=== PATIENT | female | born 1955 | race Two or more races ===

== ENCOUNTER 2019-10-27 07:50 | Inpatient (IN) | payer MEDICARE, MEDICAID ==
[~2019-10-27] VITALS: Ht 121.9 cm; Wt 47.0 kg
[2019-10-27 09:28] LABS: Basophils # (auto) 0.1 uL; Eosinophils # (auto) 0.1 uL; Lymphocytes # (auto) 0.6 uL; Lymphocytes % (auto) 11.4 % (10.0-50.0); Monocytes # (auto) 0.2 uL; White Blood Cell 5.4 10^3/uL (4.4-10.8)
[2019-10-27 09:30] LABS: Eosinophils % (auto) 1.1 % (0.0-7.0); Hematocrit 32.5 % (36.0-46.0); Hemoglobin 10.7 g/dL (12.2-16.2); Mean Corpuscular Hgb Conc. 32.8 g/dL (32.0-36.0); Mean Corpuscular Volume 103.4 fL (80.0-100.0); Monocytes % (auto) 4.5 % (0.0-12.0); Neutrophils # (auto) 4.4 uL; Platelet Count (auto) 336 10^3/uL (140-450); Red Blood Cells 3.14 10^6/uL (4.0-5.20); Red Cell Distribution Width 15.9 % (11.8-14.3)
[2019-10-27 09:43] LABS: Albumin 3.3 g/dL (3.4-5.0); Calcium 8.5 mg/dL (8.5-10.1)
[2019-10-27 09:47] LABS: Potassium 7.3 mmol/L (3.5-5.1)
[2019-10-27 09:58] LABS: Bilirubin, Total 0.3 mg/dL (0.2-1.0); Total Protein 6.8 g/dL (6.4-8.2)
[2019-10-27] MEDS ORDERED: SODIUM CHLORIDE 0.9% 1,000 ML IV ONE (11:05)
[2019-10-27] MEDS ORDERED: CALCIUM CHL 100MG/ML 1,000 MG in D5W 5% 100 ML IV ONE (11:15)
[2019-10-27] MEDS ORDERED: ALBUTEROL SULF 2.5 MG/0.5ML(0.5%) NEB SOLN NEB ONE ×2 (11:15→11:45)
[2019-10-27] MEDS ORDERED: SODIUM BICARBONATE 8.4 % INJ 50ML VIAL IV ONE (11:15)
[2019-10-27] MEDS ORDERED: InsuLIN REG 1unit/0.01ml Soln (100units/ml) IV ONE (11:45)
[2019-10-27] MEDS ORDERED: DEXTROSE (50%) 50ML SYRG IV ONE (11:45)
[2019-10-27] MEDS ORDERED: SODIUM ZIRCONIUM CYCL 10 GM PAK PO ONE (11:45)
[2019-10-27] MEDS ORDERED: CALCIUM GLUC 4.65meq/50ml D5AE 0 ML IV ONE (12:15)
[2019-10-27] MEDS ORDERED: ONDANSETRON HCL 4 MG/2 ML VIAL IV PRN (13:15)
[2019-10-27] MEDS ORDERED: LABETALOL HCL 5 MG/ML 4ML SYRINGE IV PRN (13:15)
[2019-10-27] MEDS ORDERED: ALBUTEROL SULF 2.5 MG/0.5ML(0.5%) NEB SOLN NEB PRN (13:15)
[2019-10-27] MEDS ORDERED: NITROGLYCERIN 0.4 MG SL TAB SL PRN (13:15)
[2019-10-27] MEDS ORDERED: HYDROcodone-ACET 5/325MG TAB PO PRN (13:15)
[2019-10-27] MEDS ORDERED: MORPHINE SULF INJ 2 MG/ML SYRINGE 1ML IV PRN ×2 (13:15)
[2019-10-27] MEDS ORDERED: IPRATROPIUM BROM 0.5 MG/2.5ML INH SOL NEB PRN (13:15)
[2019-10-27] MEDS ORDERED: BUMETANIDE 2.5mg/10ml (0.25 mg/ml) INJ IV ONE (13:15)
[2019-10-27] MEDS ORDERED: ACETAMINOPHEN 500 MG TAB PO PRN (13:15)
[2019-10-27 13:29] VITALS: BP 174/74
[2019-10-27] MEDS ORDERED: SODIUM CHL 0.9% 1000 ML BAG XX ONE (13:45)
[2019-10-27 13:58] LABS: % Iron Saturation 77.6 % (15-50)
[2019-10-27 19:03] LABS: Calcium 8.5 mg/dL (8.5-10.1); Potassium 3.6 mmol/L (3.5-5.1)
[2019-10-27 19:05] LABS: BUN/Creatinine Ratio 12.9
--- NOTE | 2019-10-27 21:11 | NUR ---
Respiratory note: ASSESSMENT FOR PRN MED NEB TX. PT SLEEPING COMFORTABLY AT THIS TIME. NO RESPIRATORY DISTRESS NOTED. HR 88, SPO2 99% ON 1L NC, RR 16, BS DIMINISHED. MED NEB TX NOT INDICATED AT THIS TIME. WILL CONTINUE TO MONITOR.
--- NOTE | 2019-10-27 22:00 | NUR ---
Telemetry admit from [facility] admitted to Telemetry unit after SBAR received. Patient speaks greek only. Another RN at bedside for translation. Patient oriented to MARK SALEEM RN primary RN, unit, room, bed, and unit policies regarding patient care and visiting hours. Patient now on continuous telemetry monitoring, tele box #50 and telemetry reading on arrival to unit is Sinus Rhythm at 77bpm. Patient placed on bedside oxygen, weighed by bedscale and encouraged to call if they need something. All questions and concerns addressed, patient verbalized understanding.
[2019-10-27] MEDS: CARVEDILOL 3.125 MG TAB PO SCH (23:40)
[2019-10-28 05:00] VITALS: BP 122/62
[2019-10-28 06:32] LABS: Basophils # (auto) 0 uL; Basophils % (auto) 0.8 % (0.0-2.0); Eosinophils # (auto) 0 uL; Eosinophils % (auto) 0.6 % (0.0-7.0); Hemoglobin 9.2 g/dL (12.2-16.2); Lymphocytes # (auto) 0.5 uL; Lymphocytes % (auto) 10.8 % (10.0-50.0); Mean Corpuscular Hemoglobin 34.9 pg (28.0-32.0); Mean Corpuscular Hgb Conc. 34.2 g/dL (32.0-36.0); Mean Corpuscular Volume 102.1 fL (80.0-100.0); Monocytes # (auto) 0.3 uL; Monocytes % (auto) 6.2 % (0.0-12.0); Neutrophils # (auto) 3.6 uL; Neutrophils % (auto) 81.6 % (37.0-80.0); Platelet Count (auto) 240 10^3/uL (140-450); Red Blood Cells 2.65 10^6/uL (4.0-5.20); Red Cell Distribution Width 16.1 % (11.8-14.3); White Blood Cell 4.4 10^3/uL (4.4-10.8)
[2019-10-28 06:40] LABS: Calcium 8.1 mg/dL (8.5-10.1); Potassium 4.4 mmol/L (3.5-5.1)
--- NOTE | 2019-10-28 08:10 | NUR ---
Patient in bed, awake, oriented x4, no acute distress noted.
[2019-10-28 09:25] VITALS: BP 111/62
[2019-10-28 10:00] LABS: Hepatitis A Ab IgM Negative; Hepatitis B Core IgM Negative; Hepatitis B Surface Antigen Negative (Negative); Hepatitis C Antibody Negative (Negative)
[2019-10-28] MEDS ORDERED: FAMOTIDINE 20 MG TAB PO SCH (10:00)
--- NOTE | 2019-10-28 10:36 | NUR ---
Pepcid not available. Pharmacy made aware.
[2019-10-28] MEDS: CARVEDILOL 3.125 MG TAB PO SCH (10:38)
[2019-10-28] MEDS ORDERED: amLODIPine BESYLATE 5 MG TAB PO SCH (11:30)
--- NOTE | 2019-10-28 12:28 | NUR ---
Sal Layne ordered to discharge the patient today.
--- NOTE | 2019-10-28 13:12 | NUR ---
Called son Cliff Erazo ([phone]). Phone on [place]. Left a message to call back.
[2019-10-28 14:14] VITALS: BP 114/59
--- NOTE | 2019-10-28 14:20 | NUR ---
at bedside, stated he will be the one to picker / packer the patient for discharge.
--- NOTE | 2019-10-28 15:10 | NUR ---
Nurse Christine Byrne translated for the patient in French.
--- NOTE | 2019-10-28 15:15 | NUR ---
Discharge instructions given as ordered. Encourage to follow up with PMD as instructed. All questions and concerns addressed. Patient verbalized understanding. Medication reconciliation form completed and copy given to patient. IV removed with catheter intact, pressure dressing applied. Telemetry unit returned to ICU. brought patient's own wheelchair from home. Patient taken to vehicle via wheelchair with all personal belongings, accompanied by /family member. No distress noted at time of departure.
== END 2019-10-28 15:15 | disposition home or self-care (01) | DRG 640 ==
LOC: ER 07:50 → TELE 07:51 → TELE-WESTW 21:54
PROVIDERS: ADMIT Nurse Practitioner Acute Care; ATTEND Internal Medicine Nephrology
PROC: 5A1D70Z Performance of Urinary Filtration, Intermittent, Less than 6 Hours Per Day (ICD-10-PCS; principal; 2019-10-27)
DX: E87.5 Hyperkalemia (principal); N18.6 End stage renal disease; I13.11 Hypertensive heart and chronic kidney disease without heart failure, with stage 5 chronic kidney disease, or end stage renal disease; N17.9 Acute kidney failure, unspecified; E44.1 Mild protein-calorie malnutrition; I16.1 Hypertensive emergency; E87.6 Hypokalemia; D63.1 Anemia in chronic kidney disease; Z68.31 Body mass index [BMI] 31.0-31.9, adult; Z99.2 Dependence on renal dialysis; Z91.19 Patient's noncompliance with other medical treatment and regimen; Z90.710 Acquired absence of both cervix and uterus
CPT/HCPCS: 36415; 71045; 80048; 80053; 80074; 82728; 82962; 83540; 83550; 83735; 85025; 87081; 93005; 94640; 96365; 96375; G0378; J0610; J1642; J1815; J2405; J3490; J7060

== ENCOUNTER 2020-10-27 16:39 | Inpatient (IN) | payer MEDICARE, MEDICAID ==
[~2020-10-27] VITALS: Ht 160 cm; Wt 45.3 kg
[2020-10-27] MEDS ORDERED: NOREPINEPHRINE 8 MG/250ML KIT 250 ML IV ONE (18:20)
[2020-10-27 18:40] LABS: Basophils # (auto) 0 10 ^3/uL (0-0.2); Eosinophils # (auto) 0 10 ^3/uL (0-0.8); Lymphocytes # (auto) 0.9 10 ^3/uL (0.4-5.4); Mean Corpuscular Hgb Conc. 30.8 g/dL (32.0-36.0)
[2020-10-27 18:42] LABS: Basophils % (auto) 0.1 % (0.0-2.0); Hematocrit 13.5 % (36.0-46.0); Lymphocytes % (auto) 6.4 % (10.0-50.0); Mean Corpuscular Hemoglobin 31.6 pg (28.0-32.0); Mean Corpuscular Volume 102.6 fL (80.0-100.0); Monocytes # (auto) 0.3 10 ^3/uL (0-1.3); Monocytes % (auto) 2.6 % (0.0-12.0); Neutrophils # (auto) 12.1 10 ^3/uL (1.6-8.6); Neutrophils % (auto) 90.9 % (37.0-80.0); Nucleated Red Blood Cells % 0.1 %; Red Blood Cells 1.31 10^6/uL (4.0-5.20); Red Cell Distribution Width 19.8 % (11.8-14.3); White Blood Cell 13.3 10^3/uL (4.4-10.8)
[2020-10-27 18:50] LABS: Hemoglobin 4.2 g/dL (12.2-16.2)
[2020-10-27 18:59] LABS: Alanine Aminotransferase 19 U/L (13-56); Albumin 2.8 g/dL (3.4-5.0); Anion Gap 25 (5-15); Aspartate Aminotransferase 14 U/L (15-37); BUN/Creatinine Ratio 26.8; Calcium 8.7 mg/dL (8.5-10.1); Carbon Dioxide 10 mmol/L (21-32); Chloride 102 mmol/L (98-107); GFR African American 15 mL/min; GFR Non-African American 12 mL/min; Glucose 304 mg/dL (74-106); Potassium 5.1 mmol/L (3.5-5.1); Sodium 137 mmol/L (136-145)
[2020-10-27 19:00] LABS: Alkaline Phosphatase 938 U/L (45-117); Bilirubin, Total 0.2 mg/dL (0.2-1.0); Lactic Acid w/Reflex 11.5 mmol/L (0.4-2.0); Total Protein 5.3 g/dL (6.4-8.2)
[2020-10-27 19:10] LABS: Blood Urea Nitrogen 105 mg/dL (7-18)
[2020-10-27] MEDS ORDERED: ALUM & MAG HYDROX-SIMETH LIQ(MAALOX) 30 ML PO PRN (19:15)
[2020-10-27] MEDS ORDERED: DOCUSATE SOD 100 MG CAP PO PRN (19:15)
[2020-10-27] MEDS ORDERED: MORPHINE SULFATE INJECTION 2 MG/ML SYRG IV PRN ×2 (19:15)
[2020-10-27] MEDS ORDERED: DEXTROSE (50%) 50ML SYRG IV PRN (19:15)
[2020-10-27] MEDS ORDERED: LORazepam 0.5 MG TAB PO PRN (19:15)
[2020-10-27] MEDS ORDERED: ONDANSETRON HCL 4 MG/2 ML VIAL IV PRN (19:15)
[2020-10-27] MEDS ORDERED: ACETAMINOPHEN 325 MG TAB PO PRN (19:15)
[2020-10-27] MEDS ORDERED: ALBUMIN 25% 100 ML IV ONE (19:15)
[2020-10-27] MEDS ORDERED: HYDROcodone-ACET 5/325MG TAB PO PRN (19:15)
[2020-10-27] MEDS ORDERED: NITROGLYCERIN 0.4 MG SL TAB SL PRN (19:15)
[2020-10-27] MEDS ORDERED: diphenhdrAMINE HCL 25 MG CAP PO ONE (19:15)
[2020-10-27] MEDS: CEFEPIME 1 GM in SODIUM CHL 0.9% 50 ML IV ONE ×2 (19:30→22:32)
[2020-10-27] MEDS ORDERED: hydrALAZINE HCL 20 MG/ML VL IV PRN (19:45)
[2020-10-27] MEDS ORDERED: SEVELAMER 800 MG TAB PO ONE (19:45)
[2020-10-27 19:58] LABS: INR 1.09 (0.9-1.15)
[2020-10-27 20:14] LABS: Partial Thromboplastin Time < 20.0 sec (23.0-31.2)
[2020-10-27 20:42] LABS: Cholesterol 112 mg/dL (< 200); HDL Cholesterol 42 mg/dL (40-59); LDL Cholesterol 48 mg/dL (< 100); Triglycerides 132 mg/dL (< 150)
[2020-10-27] MEDS ORDERED: CLINDAMYCIN 300MG IV 50 ML IV ONE (20:45)
[2020-10-27 21:15] VITALS: BP 112/48
[2020-10-27 21:30] VITALS: BP 118/49
[2020-10-27] MEDS: NOREPINEPHRINE 8 MG/250ML KIT 250 ML IV SCH (21:48)
[2020-10-27] MEDS: ATORVASTATIN 20 MG TAB PO SCH (22:00)
[2020-10-27] MEDS: CARVEDILOL 3.125 MG TAB PO SCH (22:00)
[2020-10-27] MEDS ORDERED: ALBUTEROL SULF HFA 90MCG INH 200DOSE IN SCH (22:00)
[2020-10-27 22:10] LABS: INR 1.15 (0.9-1.15)
[2020-10-27] MEDS: CEFEPIME 0.5 GM in SODIUM CHL 0.9% 50 ML IV SCH (22:28)
[2020-10-27] MEDS: InsuLIN REG 1unit/0.01ml Soln (100units/ml) SC SCH (22:35)
[2020-10-27] MEDS: ACCU-CHEK COMFORT CURVE STRIP VI SCH (22:36)
[2020-10-28 00:30] VITALS: BP 133/62
[2020-10-28 00:50] VITALS: BP 138/60
[2020-10-28 01:20] VITALS: BP 141/57
[2020-10-28 04:34] VITALS: BP 140/60
[2020-10-28] MEDS: ALBUMIN 25% 100 ML IV SCH ×3 (04:46→21:48)
[2020-10-28] MEDS: CLINDAMYCIN 300MG IV 50 ML IV SCH ×3 (05:39→21:50)
[2020-10-28] MEDS: FUROSEMIDE 20 MG/2 ML VIAL IV SCH ×2 (06:00→18:00)
[2020-10-28 06:57] LABS: Eosinophils # (auto) 0 10 ^3/uL (0-0.8); Hemoglobin 8.4 g/dL (12.2-16.2); White Blood Cell 11.9 10^3/uL (4.4-10.8)
[2020-10-28 06:59] LABS: Basophils # (auto) 0 10 ^3/uL (0-0.2); Basophils % (auto) 0.2 % (0.0-2.0); Hematocrit 24.1 % (36.0-46.0); Lymphocytes # (auto) 0.2 10 ^3/uL (0.4-5.4); Mean Corpuscular Hemoglobin 31.1 pg (28.0-32.0); Mean Corpuscular Volume 88.9 fL (80.0-100.0); Monocytes # (auto) 0.5 10 ^3/uL (0-1.3); Monocytes % (auto) 3.8 % (0.0-12.0); Neutrophils # (auto) 11.2 10 ^3/uL (1.6-8.6); Nucleated Red Blood Cells % 0.1 %; Red Blood Cells 2.71 10^6/uL (4.0-5.20); Red Cell Distribution Width 15.9 % (11.8-14.3)
[2020-10-28] MEDS: InsuLIN REG 1unit/0.01ml Soln (100units/ml) SC SCH ×4 (07:00→20:29)
[2020-10-28 07:09] LABS: Albumin 3.6 g/dL (3.4-5.0); Calcium 7.8 mg/dL (8.5-10.1); Magnesium 2.5 mg/dL (1.6-2.6); Potassium 4.5 mmol/L (3.5-5.1)
[2020-10-28 07:13] LABS: BUN/Creatinine Ratio 30.5; Bilirubin, Total 0.5 mg/dL (0.2-1.0); Phosphorus 6.1 mg/dL (2.5-4.90); Total Protein 5.8 g/dL (6.4-8.2)
[2020-10-28 07:18] LABS: INR 1.06 (0.9-1.15); Partial Thromboplastin Time 27.9 sec (23.0-31.2)
[2020-10-28] MEDS: ACCU-CHEK COMFORT CURVE STRIP VI SCH ×4 (07:48→20:28)
[2020-10-28] MEDS: SEVELAMER 800 MG TAB PO SCH ×3 (08:00→18:00)
[2020-10-28] MEDS: CHOLECALCIFEROL (VITD3) 2,000 UNIT CAP/TAB PO SCH (10:00)
[2020-10-28] MEDS: FAMOTIDINE (10MG/ML) 2ML VL IV SCH ×2 (10:00→21:27)
[2020-10-28] MEDS: CARVEDILOL 3.125 MG TAB PO SCH ×2 (10:00→20:29)
[2020-10-28] MEDS: B-COMPLEX W/ C & FOLIC ACID(NEPHROVITE TAB) PO SCH (10:00)
[2020-10-28] MEDS ORDERED: ALBUMIN 5% 0 ML IV ONE (12:54)
[2020-10-28] MEDS ORDERED: ALBUMIN 25% 100 ML IV ONE ×2 (12:55→21:28)
[2020-10-28] MEDS: CEFEPIME 0.5 GM in SODIUM CHL 0.9% 50 ML IV SCH (20:00)
[2020-10-28] MEDS: ATORVASTATIN 20 MG TAB PO SCH (21:27)
[2020-10-28] MEDS: NOREPINEPHRINE 8 MG/250ML KIT 250 ML IV SCH (21:45)
[2020-10-29] MEDS: ACCU-CHEK COMFORT CURVE STRIP VI SCH ×4 (05:47→21:37)
[2020-10-29] MEDS: InsuLIN REG 1unit/0.01ml Soln (100units/ml) SC SCH ×4 (05:47→21:37)
[2020-10-29 06:09] LABS: Basophils # (auto) 0 10 ^3/uL (0-0.2); Basophils % (auto) 0.1 % (0.0-2.0); Eosinophils # (auto) 0 10 ^3/uL (0-0.8); Eosinophils % (auto) 0.1 % (0.0-7.0); Hematocrit 20.2 % (36.0-46.0); Hemoglobin 7.5 g/dL (12.2-16.2); Lymphocytes # (auto) 0.3 10 ^3/uL (0.4-5.4); Lymphocytes % (auto) 4.6 % (10.0-50.0); Mean Corpuscular Hemoglobin 32.8 pg (28.0-32.0); Mean Corpuscular Hgb Conc. 37.1 g/dL (32.0-36.0); Mean Corpuscular Volume 88.3 fL (80.0-100.0); Monocytes # (auto) 0.6 10 ^3/uL (0-1.3); Monocytes % (auto) 7.5 % (0.0-12.0); Neutrophils # (auto) 6.5 10 ^3/uL (1.6-8.6); Neutrophils % (auto) 87.7 % (37.0-80.0); Nucleated Red Blood Cells % 0.4 %; Red Blood Cells 2.29 10^6/uL (4.0-5.20); Red Cell Distribution Width 16.3 % (11.8-14.3); White Blood Cell 7.4 10^3/uL (4.4-10.8)
[2020-10-29] MEDS: CLINDAMYCIN 300MG IV 50 ML IV SCH ×3 (06:16→21:07)
[2020-10-29] MEDS: FUROSEMIDE 20 MG/2 ML VIAL IV SCH ×2 (06:16→17:28)
[2020-10-29 06:24] LABS: Potassium 4.1 mmol/L (3.5-5.1)
[2020-10-29 06:28] LABS: Albumin 3.4 g/dL (3.4-5.0); BUN/Creatinine Ratio 20.5; Calcium 8.5 mg/dL (8.5-10.1); Magnesium 2.3 mg/dL (1.6-2.6)
[2020-10-29 06:30] LABS: Bilirubin, Total 0.5 mg/dL (0.2-1.0); Phosphorus 6.1 mg/dL (2.5-4.90); Total Protein 5.6 g/dL (6.4-8.2)
[2020-10-29 06:31] LABS: INR 1.18 (0.9-1.15); Partial Thromboplastin Time 34.1 sec (23.0-31.2)
[2020-10-29] MEDS: SEVELAMER 800 MG TAB PO SCH ×3 (07:41→17:29)
[2020-10-29] MEDS: B-COMPLEX W/ C & FOLIC ACID(NEPHROVITE TAB) PO SCH (09:29)
[2020-10-29] MEDS: FAMOTIDINE (10MG/ML) 2ML VL IV SCH ×2 (09:29→21:08)
[2020-10-29] MEDS: CHOLECALCIFEROL (VITD3) 2,000 UNIT CAP/TAB PO SCH (09:29)
[2020-10-29] MEDS: CARVEDILOL 3.125 MG TAB PO SCH ×2 (09:29→21:37)
[2020-10-29] MEDS: CEFEPIME 0.5 GM in SODIUM CHL 0.9% 50 ML IV SCH (17:28)
[2020-10-29 21:00] VITALS: BP 119/55
[2020-10-29] MEDS: ATORVASTATIN 20 MG TAB PO SCH (21:08)
[2020-10-29] MEDS: NOREPINEPHRINE 8 MG/250ML KIT 250 ML IV SCH (21:45)
[2020-10-29 22:00] VITALS: BP 119/55
[2020-10-30 05:00] VITALS: BP 96/47
[2020-10-30] MEDS: CLINDAMYCIN 300MG IV 50 ML IV SCH ×2 (05:42→14:27)
[2020-10-30] MEDS: ACCU-CHEK COMFORT CURVE STRIP VI SCH ×4 (05:43→22:00)
[2020-10-30] MEDS: InsuLIN REG 1unit/0.01ml Soln (100units/ml) SC SCH ×4 (05:43→22:00)
[2020-10-30] MEDS: FUROSEMIDE 20 MG/2 ML VIAL IV SCH ×2 (05:43→18:00)
[2020-10-30] MEDS: SEVELAMER 800 MG TAB PO SCH ×3 (09:24→18:00)
[2020-10-30] MEDS: FAMOTIDINE (10MG/ML) 2ML VL IV SCH (09:25)
[2020-10-30] MEDS: B-COMPLEX W/ C & FOLIC ACID(NEPHROVITE TAB) PO SCH (09:25)
[2020-10-30] MEDS: CARVEDILOL 3.125 MG TAB PO SCH ×2 (09:25→23:03)
[2020-10-30] MEDS: CHOLECALCIFEROL (VITD3) 2,000 UNIT CAP/TAB PO SCH (09:25)
[2020-10-30 10:13] VITALS: BP 110/55
[2020-10-30] MEDS ORDERED: LOPERAMIDE HCL 2 MG CAP PO PRN (12:00)
[2020-10-30 12:27] LABS: Albumin 2.9 g/dL (3.4-5.0); Calcium 7.4 mg/dL (8.5-10.1); Potassium 4.6 mmol/L (3.5-5.1)
[2020-10-30] MEDS ORDERED: GOLYTELY 4L KIT PO ONE (12:30)
[2020-10-30 12:41] LABS: BUN/Creatinine Ratio 17.4; Bilirubin, Total 0.4 mg/dL (0.2-1.0); Total Protein 5.4 g/dL (6.4-8.2)
[2020-10-30 17:13] VITALS: BP 136/68
[2020-10-30 22:00] VITALS: BP 130/63
[2020-10-30] MEDS: CEFEPIME 0.5 GM in SODIUM CHL 0.9% 50 ML IV SCH (22:54)
[2020-10-30] MEDS: ATORVASTATIN 20 MG TAB PO SCH (22:54)
[2020-10-31] MEDS: CLINDAMYCIN 300MG IV 50 ML IV SCH ×4 (01:03→22:02)
[2020-10-31 05:00] VITALS: BP 147/70
[2020-10-31] MEDS: FUROSEMIDE 20 MG/2 ML VIAL IV SCH ×2 (05:31→18:22)
[2020-10-31] MEDS ORDERED: GOLYTELY 4L KIT PO ONE (06:00)
[2020-10-31] MEDS: InsuLIN REG 1unit/0.01ml Soln (100units/ml) SC SCH ×4 (06:25→22:00)
[2020-10-31] MEDS: ACCU-CHEK COMFORT CURVE STRIP VI SCH ×4 (06:26→22:02)
[2020-10-31] MEDS ORDERED: SODIUM CHL 0.9% 1000 ML BAG XX ONE (07:00)
[2020-10-31 07:24] LABS: Basophils # (auto) 0 10 ^3/uL (0-0.2); Eosinophils # (auto) 0.1 10 ^3/uL (0-0.8); Eosinophils % (auto) 2.4 % (0.0-7.0); Lymphocytes # (auto) 0.8 10 ^3/uL (0.4-5.4); Neutrophils # (auto) 4.2 10 ^3/uL (1.6-8.6); Nucleated Red Blood Cells % 0.1 %; White Blood Cell 5.5 10^3/uL (4.4-10.8)
[2020-10-31 07:27] LABS: Basophils % (auto) 0.5 % (0.0-2.0); Hematocrit 21.5 % (36.0-46.0); Hemoglobin 7.4 g/dL (12.2-16.2); Lymphocytes % (auto) 15.2 % (10.0-50.0); Mean Corpuscular Hemoglobin 31.8 pg (28.0-32.0); Mean Corpuscular Hgb Conc. 34.5 g/dL (32.0-36.0); Mean Corpuscular Volume 92.2 fL (80.0-100.0); Monocytes # (auto) 0.3 10 ^3/uL (0-1.3); Monocytes % (auto) 6.2 % (0.0-12.0); Neutrophils % (auto) 75.7 % (37.0-80.0); Red Blood Cells 2.33 10^6/uL (4.0-5.20); Red Cell Distribution Width 16.5 % (11.8-14.3)
[2020-10-31 07:42] LABS: Potassium 4.6 mmol/L (3.5-5.1)
[2020-10-31 07:49] LABS: Albumin 2.8 g/dL (3.4-5.0); BUN/Creatinine Ratio 15.5; Bilirubin, Total 0.4 mg/dL (0.2-1.0); Calcium 7.5 mg/dL (8.5-10.1); Total Protein 5.4 g/dL (6.4-8.2)
[2020-10-31 07:51] LABS: % Iron Saturation 25.7 % (15-50)
[2020-10-31 07:55] VITALS: BP 130/62
[2020-10-31] MEDS: SEVELAMER 800 MG TAB PO SCH ×4 (08:00→18:13)
[2020-10-31] MEDS ORDERED: fentaNYL CITRATE 100 MCG/2 ML VL ONE (08:02)
[2020-10-31] MEDS ORDERED: SODIUM CHLORIDE LOCK 10 ML ONE (08:02)
[2020-10-31] MEDS ORDERED: MIDAZOLAM HCL 5 MG/ML-1ML VIAL ONE (08:02)
[2020-10-31] MEDS ORDERED: diphenhdrAMINE HCL 50 MG/1 ML VL ONE (08:02)
[2020-10-31] MEDS: CHOLECALCIFEROL (VITD3) 2,000 UNIT CAP/TAB PO SCH (10:07)
[2020-10-31] MEDS: B-COMPLEX W/ C & FOLIC ACID(NEPHROVITE TAB) PO SCH (10:07)
[2020-10-31] MEDS: CARVEDILOL 3.125 MG TAB PO SCH ×2 (10:08→22:02)
[2020-10-31] MEDS: FAMOTIDINE (10MG/ML) 2ML VL IV SCH (10:08)
[2020-10-31 15:55] VITALS: BP 126/58
[2020-10-31] MEDS: CEFEPIME 0.5 GM in SODIUM CHL 0.9% 50 ML IV SCH (18:14)
[2020-10-31] MEDS ORDERED: EPOETIN ALFA 10,000 UNIT/1 ML VIAL SC ONE (21:00)
[2020-10-31 22:00] VITALS: BP 123/64
[2020-10-31] MEDS: ATORVASTATIN 20 MG TAB PO SCH (22:02)
[2020-11-01] VITALS (10 sets, daily range): BP systolic 123–136; BP diastolic 58–79
[2020-11-01] MEDS: FUROSEMIDE 20 MG/2 ML VIAL IV SCH ×2 (06:33→18:03)
[2020-11-01] MEDS: CLINDAMYCIN 300MG IV 50 ML IV SCH (06:33)
[2020-11-01] MEDS: InsuLIN REG 1unit/0.01ml Soln (100units/ml) SC SCH ×4 (06:36→21:50)
[2020-11-01] MEDS: ACCU-CHEK COMFORT CURVE STRIP VI SCH ×4 (06:36→21:50)
[2020-11-01] MEDS ORDERED: SODIUM CHL 0.9% 1000 ML BAG XX ONE (07:00)
[2020-11-01 07:40] LABS: Potassium 4.6 mmol/L (3.5-5.1)
[2020-11-01] MEDS: SEVELAMER 800 MG TAB PO SCH ×3 (08:00→18:03)
[2020-11-01 08:06] LABS: Albumin 2.8 g/dL (3.4-5.0); Bilirubin, Total 0.7 mg/dL (0.2-1.0); Calcium 7.8 mg/dL (8.5-10.1); Total Protein 5.6 g/dL (6.4-8.2)
[2020-11-01] MEDS ORDERED: SODIUM CHLORIDE LOCK 10 ML ONE (08:08)
[2020-11-01] MEDS ORDERED: diphenhdrAMINE HCL 50 MG/1 ML VL ONE (08:09)
[2020-11-01 08:12] LABS: Basophils # (auto) 0 10 ^3/uL (0-0.2); Basophils % (auto) 0.5 % (0.0-2.0); Eosinophils # (auto) 0.1 10 ^3/uL (0-0.8); Eosinophils % (auto) 2.1 % (0.0-7.0); Hematocrit 31.9 % (36.0-46.0); Hemoglobin 10.9 g/dL (12.2-16.2); Lymphocytes # (auto) 0.4 10 ^3/uL (0.4-5.4); Lymphocytes % (auto) 8.2 % (10.0-50.0); Mean Corpuscular Hemoglobin 31.6 pg (28.0-32.0); Mean Corpuscular Hgb Conc. 34.1 g/dL (32.0-36.0); Mean Corpuscular Volume 92.7 fL (80.0-100.0); Monocytes # (auto) 0.1 10 ^3/uL (0-1.3); Monocytes % (auto) 2.1 % (0.0-12.0); Neutrophils # (auto) 3.8 10 ^3/uL (1.6-8.6); Neutrophils % (auto) 87.1 % (37.0-80.0); Red Blood Cells 3.44 10^6/uL (4.0-5.20); Red Cell Distribution Width 15.6 % (11.8-14.3); White Blood Cell 4.4 10^3/uL (4.4-10.8)
[2020-11-01] MEDS: MIDAZOLAM HCL 5 MG/ML-1ML VIAL ONE ×2 (09:27→09:30)
[2020-11-01] MEDS: fentaNYL CITRATE 100 MCG/2 ML VL ONE ×2 (09:27→09:30)
[2020-11-01] MEDS ORDERED: FLUMAZENIL 0.1 MG/ML INJ 10ML MDV IV ONE (09:42)
[2020-11-01] MEDS ORDERED: NALOXONE HCL 0.4 MG/ML VIAL ONE (09:53)
[2020-11-01] MEDS: CHOLECALCIFEROL (VITD3) 2,000 UNIT CAP/TAB PO SCH (10:00)
[2020-11-01] MEDS: CARVEDILOL 3.125 MG TAB PO SCH ×2 (10:00→21:49)
[2020-11-01] MEDS: B-COMPLEX W/ C & FOLIC ACID(NEPHROVITE TAB) PO SCH (10:00)
[2020-11-01] MEDS ORDERED: AZITHROMYCIN 500MG/ 250ML 250 ML IV ONE (11:00)
[2020-11-01] MEDS ORDERED: cefTRIAXone 1GM/50ML D5W 50 ML IV ONE (11:00)
[2020-11-01] MEDS ORDERED: EPOETIN ALFA 10,000 UNIT/1 ML VIAL SC ONE (21:00)
[2020-11-01] MEDS: ATORVASTATIN 20 MG TAB PO SCH (21:50)
[2020-11-02 02:00] VITALS: BP 136/63
[2020-11-02 05:00] VITALS: BP 129/62
[2020-11-02] MEDS: FUROSEMIDE 20 MG/2 ML VIAL IV SCH ×2 (05:26→18:00)
[2020-11-02] MEDS: InsuLIN REG 1unit/0.01ml Soln (100units/ml) SC SCH ×4 (06:11→21:54)
[2020-11-02] MEDS: ACCU-CHEK COMFORT CURVE STRIP VI SCH ×4 (06:12→21:54)
[2020-11-02 07:32] LABS: Potassium 3.9 mmol/L (3.5-5.1)
[2020-11-02 07:39] LABS: Albumin 2.5 g/dL (3.4-5.0); BUN/Creatinine Ratio 8.9; Bilirubin, Total 0.3 mg/dL (0.2-1.0); Calcium 7.8 mg/dL (8.5-10.1); Total Protein 5.2 g/dL (6.4-8.2)
[2020-11-02 08:00] VITALS: BP 119/64
[2020-11-02 08:10] VITALS: BP 119/64
[2020-11-02] MEDS: CHOLECALCIFEROL (VITD3) 2,000 UNIT CAP/TAB PO SCH (09:26)
[2020-11-02] MEDS: CARVEDILOL 3.125 MG TAB PO SCH ×4 (09:26→22:12)
[2020-11-02] MEDS: SEVELAMER 800 MG TAB PO SCH ×3 (09:26→17:59)
[2020-11-02] MEDS: B-COMPLEX W/ C & FOLIC ACID(NEPHROVITE TAB) PO SCH (09:26)
[2020-11-02] MEDS: AZITHROMYCIN 500MG/ 250ML 250 ML IV SCH (09:27)
[2020-11-02] MEDS: FAMOTIDINE (10MG/ML) 2ML VL IV SCH (09:27)
[2020-11-02] MEDS: cefTRIAXone 1GM/50ML D5W 50 ML IV SCH (09:28)
[2020-11-02 15:51] VITALS: BP 137/65
[2020-11-02] MEDS: ATORVASTATIN 20 MG TAB PO SCH (21:54)
[2020-11-02 22:00] VITALS: BP 149/68
[2020-11-03 05:00] VITALS: BP 145/69
[2020-11-03] MEDS: FUROSEMIDE 20 MG/2 ML VIAL IV SCH ×2 (06:12→18:00)
[2020-11-03] MEDS: ACCU-CHEK COMFORT CURVE STRIP VI SCH ×3 (06:48→17:00)
[2020-11-03] MEDS: InsuLIN REG 1unit/0.01ml Soln (100units/ml) SC SCH ×3 (06:49→17:00)
[2020-11-03] MEDS ORDERED: SODIUM CHL 0.9% 1000 ML BAG XX ONE (07:00)
[2020-11-03 07:58] LABS: Hematocrit 28.8 % (36.0-46.0); Hemoglobin 9.8 g/dL (12.2-16.2)
[2020-11-03 08:00] VITALS: BP 135/69
[2020-11-03] MEDS: SEVELAMER 800 MG TAB PO SCH ×3 (08:12→18:00)
[2020-11-03 08:16] LABS: % Iron Saturation 25.2 % (15-50)
[2020-11-03] MEDS: cefTRIAXone 1GM/50ML D5W 50 ML IV SCH (09:57)
[2020-11-03] MEDS: CARVEDILOL 3.125 MG TAB PO SCH (09:58)
[2020-11-03] MEDS: AZITHROMYCIN 500MG/ 250ML 250 ML IV SCH (09:58)
[2020-11-03] MEDS: CHOLECALCIFEROL (VITD3) 2,000 UNIT CAP/TAB PO SCH (10:02)
[2020-11-03] MEDS: B-COMPLEX W/ C & FOLIC ACID(NEPHROVITE TAB) PO SCH (10:02)
[2020-11-03 15:46] VITALS: BP 147/72
[2020-11-03] MEDS ORDERED: EPOETIN ALFA 10,000 UNIT/1 ML VIAL SC ONE (21:00)
[2020-11-18] MEDS ORDERED: FAMO-12 PO (09:09)
== END 2020-11-03 18:00 | disposition home or self-care (01) | DRG 871 ==
LOC: ER 16:39 → OVERFLOW 19:04 → TELE-EAST 10-29 21:04
PROVIDERS: ADMIT Hospitalist; ATTEND Family Medicine
PROC: 30230N1 Transfusion of Nonautologous Red Blood Cells into Peripheral Vein, Open Approach (ICD-10-PCS; principal; 2020-10-27)
PROC: 02HV33Z Insertion of Infusion Device into Superior Vena Cava, Percutaneous Approach (ICD-10-PCS; 2020-10-27)
PROC: 5A1D70Z Performance of Urinary Filtration, Intermittent, Less than 6 Hours Per Day (ICD-10-PCS; 2020-10-28)
PROC: 5A1D70Z Performance of Urinary Filtration, Intermittent, Less than 6 Hours Per Day (ICD-10-PCS; 2020-11-01)
PROC: 0DJD8ZZ Inspection of Lower Intestinal Tract, Via Natural or Artificial Opening Endoscopic (ICD-10-PCS; 2020-11-01)
PROC: 5A1D70Z Performance of Urinary Filtration, Intermittent, Less than 6 Hours Per Day (ICD-10-PCS; 2020-11-03)
DX: A41.9 Sepsis, unspecified organism (principal); G93.41 Metabolic encephalopathy; N18.6 End stage renal disease; J18.9 Pneumonia, unspecified organism; J96.01 Acute respiratory failure with hypoxia; K57.31 Diverticulosis of large intestine without perforation or abscess with bleeding; I12.0 Hypertensive chronic kidney disease with stage 5 chronic kidney disease or end stage renal disease; I95.9 Hypotension, unspecified; D63.1 Anemia in chronic kidney disease; N25.0 Renal osteodystrophy; Z20.822 Contact with and (suspected) exposure to COVID-19; E78.5 Hyperlipidemia, unspecified; E87.70 Fluid overload, unspecified; K64.4 Residual hemorrhoidal skin tags; D49.89 Neoplasm of unspecified behavior of other specified sites; Z99.2 Dependence on renal dialysis; Z90.710 Acquired absence of both cervix and uterus
CPT/HCPCS: 36415; 36556; 36600; 45378; 70450; 71045; 80053; 80061; 82270; 82728; 82805; 82962; 83036; 83540; 83550; 83605; 83735; 83880; 83970; 84100; 84484; 85014; 85018; 85025; 85384; 85610; 85730; 86850; 86900; 86901; 86920; 87040; 87081; 87426; 90935; 93306; 96365; 99291; G0378; J0696; J0885; J1815; J2250; J2405; J3490; P9047

== ENCOUNTER 2020-11-15 17:07 | Inpatient (IN) | payer MEDICARE, MEDICAID ==
[~2020-11-15] VITALS: Ht 121.9 cm; Wt 43.3 kg
[2020-11-15 17:50] LABS: Basophils # (auto) 0 10 ^3/uL (0-0.2); Eosinophils # (auto) 0.1 10 ^3/uL (0-0.8)
[2020-11-15 17:52] LABS: Basophils % (auto) 1.1 % (0.0-2.0); Eosinophils % (auto) 1.6 % (0.0-7.0); Hematocrit 18.8 % (36.0-46.0); Lymphocytes # (auto) 0.7 10 ^3/uL (0.4-5.4); Lymphocytes % (auto) 16.9 % (10.0-50.0); Mean Corpuscular Hemoglobin 32.1 pg (28.0-32.0); Mean Corpuscular Hgb Conc. 33.7 g/dL (32.0-36.0); Monocytes # (auto) 0.3 10 ^3/uL (0-1.3); Monocytes % (auto) 7.8 % (0.0-12.0); Neutrophils % (auto) 72.6 % (37.0-80.0); Red Blood Cells 1.98 10^6/uL (4.0-5.20); Red Cell Distribution Width 18.4 % (11.8-14.3); White Blood Cell 4.1 10^3/uL (4.4-10.8)
[2020-11-15 18:03] LABS: Hemoglobin 6.3 g/dL (12.2-16.2)
[2020-11-15 18:15] LABS: INR 0.96 (0.9-1.15)
[2020-11-15 18:21] LABS: Albumin 2.8 g/dL (3.4-5.0); Anion Gap 6 (5-15); Blood Urea Nitrogen 45 mg/dL (7-18); Calcium 7.7 mg/dL (8.5-10.1); Carbon Dioxide 27 mmol/L (21-32); Chloride 104 mmol/L (98-107); Glucose 91 mg/dL (74-106); Magnesium 2.3 mg/dL (1.6-2.6); Potassium 5.1 mmol/L (3.5-5.1); Sodium 137 mmol/L (136-145)
[2020-11-15 18:37] LABS: Alanine Aminotransferase 13 U/L (13-56); Alkaline Phosphatase 1047 U/L (45-117); Aspartate Aminotransferase 14 U/L (15-37); BUN/Creatinine Ratio 9.7; Bilirubin, Total 0.3 mg/dL (0.2-1.0); GFR African American 12 mL/min; GFR Non-African American 10 mL/min
[2020-11-15] MEDS ORDERED: HYDROcodone-ACET 5/325MG TAB PO PRN (19:45)
[2020-11-15] MEDS ORDERED: MORPHINE SULFATE INJECTION 2 MG/ML SYRG IV PRN ×2 (19:45)
[2020-11-15] MEDS ORDERED: ACETAMINOPHEN 500 MG TAB PO PRN (19:45)
[2020-11-15] MEDS ORDERED: NITROGLYCERIN 0.4 MG SL TAB SL PRN (19:45)
[2020-11-15] MEDS ORDERED: ONDANSETRON HCL 4 MG/2 ML VIAL IV PRN (19:45)
[2020-11-15 21:50] VITALS: BP 94/74
[2020-11-15 21:53] VITALS: BP 94/74
[2020-11-15 22:08] VITALS: BP 161/46
[2020-11-16] VITALS (7 sets, daily range): BP systolic 133–160; BP diastolic 50–81
[2020-11-16 08:38] LABS: Hematocrit 25.3 % (36.0-46.0); Hemoglobin 8.7 g/dL (12.2-16.2); Mean Corpuscular Hemoglobin 31.4 pg (28.0-32.0); Mean Corpuscular Hgb Conc. 34.4 g/dL (32.0-36.0); Mean Corpuscular Volume 91.2 fL (80.0-100.0); Red Blood Cells 2.77 10^6/uL (4.0-5.20); Red Cell Distribution Width 17.5 % (11.8-14.3); White Blood Cell 4.8 10^3/uL (4.4-10.8)
[2020-11-16 08:47] LABS: Band Neutrophils % (manual) 0; Basophils % (manual) 0 (0.0-2.0); Blast Cells 0; Eosinophils % (manual) 0 (0-7); Metamyelocytes % 0; Myelocytes % 0; Promyelocytes % 0; Reactive Lymphocytes 0
[2020-11-16 08:53] LABS: Albumin 2.8 g/dL (3.4-5.0); Calcium 8.2 mg/dL (8.5-10.1); Potassium 5.2 mmol/L (3.5-5.1)
[2020-11-16 08:57] LABS: Bilirubin, Total 0.3 mg/dL (0.2-1.0); Total Protein 6.2 g/dL (6.4-8.2)
[2020-11-16 09:09] LABS: Lymphocytes % (manual) 18 (10.0-50.0); Monocytes % (manual) 10 (0-12)
[2020-11-16] MEDS: FAMOTIDINE 20 MG TAB PO SCH (09:37)
[2020-11-16] MEDS ORDERED: FERR-20 PO (12:46)
[2020-11-16] MEDS ORDERED: B-CO-5 PO (12:46)
[2020-11-16] MEDS ORDERED: NIFE1TAB31 PO (12:46)
[2020-11-16] MEDS: SODIUM ZIRCONIUM CYCL 10 GM PAK PO SCH ×3 (14:00→21:48)
[2020-11-16] MEDS: FERROUS SULFATE 325mg EC TAB PO SCH (17:31)
[2020-11-16] MEDS: hydrALAZINE HCL 20 MG/ML VL IV PRN (22:23)
[2020-11-17 05:00] VITALS: BP 134/65
[2020-11-17] MEDS: SODIUM ZIRCONIUM CYCL 10 GM PAK PO SCH ×3 (05:16→21:21)
[2020-11-17] MEDS ORDERED: SODIUM CHL 0.9% 1000 ML BAG XX ONE (07:00)
[2020-11-17 07:38] LABS: Basophils # (auto) 0 10 ^3/uL (0-0.2); Eosinophils # (auto) 0.1 10 ^3/uL (0-0.8); Hemoglobin 8.3 g/dL (12.2-16.2); Lymphocytes # (auto) 0.8 10 ^3/uL (0.4-5.4); Monocytes # (auto) 0.4 10 ^3/uL (0-1.3); Neutrophils # (auto) 2.7 10 ^3/uL (1.6-8.6); White Blood Cell 4.1 10^3/uL (4.4-10.8)
[2020-11-17 07:41] LABS: Basophils % (auto) 1.1 % (0.0-2.0); Eosinophils % (auto) 2.1 % (0.0-7.0); Hematocrit 24.1 % (36.0-46.0); Lymphocytes % (auto) 20.8 % (10.0-50.0); Mean Corpuscular Hgb Conc. 34.4 g/dL (32.0-36.0); Monocytes % (auto) 9.8 % (0.0-12.0); Neutrophils % (auto) 66.2 % (37.0-80.0); Red Blood Cells 2.59 10^6/uL (4.0-5.20); Red Cell Distribution Width 17.8 % (11.8-14.3)
[2020-11-17 07:58] LABS: % Iron Saturation 16.7 % (15-50); Calcium 8.3 mg/dL (8.5-10.1); Potassium 4.9 mmol/L (3.5-5.1)
[2020-11-17 07:59] LABS: Phosphorus 7.3 mg/dL (2.5-4.90)
[2020-11-17 08:00] VITALS: BP 160/95
[2020-11-17] MEDS: FERROUS SULFATE 325mg EC TAB PO SCH ×2 (08:14→17:03)
[2020-11-17] MEDS: FAMOTIDINE 20 MG TAB PO SCH (08:14)
[2020-11-17 08:45] VITALS: BP 160/95
[2020-11-17] MEDS: NIFEdipine ER 30 MG TAB PO SCH (10:00)
[2020-11-17 13:17] VITALS: BP 135/72
[2020-11-17 17:01] VITALS: BP 113/62
[2020-11-17] MEDS ORDERED: EPOETIN ALFA 10,000 UNIT/1 ML VIAL SC ONE (21:00)
[2020-11-17 22:00] VITALS: BP 130/69
[2020-11-18 05:00] VITALS: BP 153/88
[2020-11-18] MEDS: SODIUM ZIRCONIUM CYCL 10 GM PAK PO SCH (05:04)
[2020-11-18] MEDS: hydrALAZINE HCL 20 MG/ML VL IV PRN (05:04)
[2020-11-18 06:04] VITALS: BP 138/80
[2020-11-18 07:11] LABS: Hematocrit 23.7 % (36.0-46.0); Hemoglobin 8.2 g/dL (12.2-16.2)
[2020-11-18] MEDS: FERROUS SULFATE 325mg EC TAB PO SCH (07:41)
[2020-11-18 08:24] VITALS: BP 121/58
[2020-11-18] MEDS ORDERED: FAMO-12 PO (09:09)
[2020-11-18] MEDS: NIFEdipine ER 30 MG TAB PO SCH (10:00)
[2020-11-18] MEDS: FAMOTIDINE 20 MG TAB PO SCH (10:09)
[2020-11-18 13:24] VITALS: BP 121/58
[2020-11-20 10:41] LABS: Hepatitis A Ab IgM Negative; Hepatitis B Core IgM Negative
[2020-11-20 10:42] LABS: Hepatitis B Surface Antigen Negative (Negative); Hepatitis C Antibody Negative (Negative)
== END 2020-11-18 14:00 | disposition home or self-care (01) | DRG 291 ==
LOC: ER 17:07 → TELE 19:46 → TELE-WESTW 11-16 03:31
PROVIDERS: ADMIT Nurse Practitioner Acute Care; ATTEND Internal Medicine
PROC: 30230N1 Transfusion of Nonautologous Red Blood Cells into Peripheral Vein, Open Approach (ICD-10-PCS; principal; 2020-11-15)
PROC: 5A1D70Z Performance of Urinary Filtration, Intermittent, Less than 6 Hours Per Day (ICD-10-PCS; 2020-11-17)
DX: I13.2 Hypertensive heart and chronic kidney disease with heart failure and with stage 5 chronic kidney disease, or end stage renal disease (principal); N18.6 End stage renal disease; I50.32 Chronic diastolic (congestive) heart failure; J96.10 Chronic respiratory failure, unspecified whether with hypoxia or hypercapnia; D63.1 Anemia in chronic kidney disease; E66.9 Obesity, unspecified; E87.5 Hyperkalemia; Z20.822 Contact with and (suspected) exposure to COVID-19; Z99.2 Dependence on renal dialysis; Z90.710 Acquired absence of both cervix and uterus; Z68.29 Body mass index [BMI] 29.0-29.9, adult; Z90.49 Acquired absence of other specified parts of digestive tract; Z87.01 Personal history of pneumonia (recurrent)
CPT/HCPCS: 36415; 71045; 80048; 80053; 80074; 82728; 83540; 83550; 83735; 84100; 84132; 84484; 85007; 85014; 85018; 85025; 85027; 85610; 86850; 86900; 86901; 86920; 87081; 87426; 90935; 93005; 97110; 97530; G0378; J0885

== ENCOUNTER → 2020-11-29 | Outpatient (CLI) | payer MEDICARE, MEDICAID ==
[~2020-11-29] MED LIST: B-CO-5 PO; FAMO-12 PO; FERR-20 PO; NIFE1TAB31 PO
[2020-11-29 16:16] LABS: Basophils # (auto) 0.1 10 ^3/uL (0-0.2); Basophils % (auto) 0.9 % (0.0-2.0); Eosinophils # (auto) 0.1 10 ^3/uL (0-0.8); Hematocrit 26.6 % (36.0-46.0); Hemoglobin 8.8 g/dL (12.2-16.2); Lymphocytes # (auto) 1.2 10 ^3/uL (0.4-5.4); Lymphocytes % (auto) 18.3 % (10.0-50.0); Mean Corpuscular Hemoglobin 31.5 pg (28.0-32.0); Mean Corpuscular Volume 95.6 fL (80.0-100.0); Monocytes # (auto) 0.4 10 ^3/uL (0-1.3); Monocytes % (auto) 5.9 % (0.0-12.0); Neutrophils % (auto) 73.9 % (37.0-80.0); Platelet Count (auto) 354 10^3/uL (140-450); Red Blood Cells 2.78 10^6/uL (4.0-5.20); Red Cell Distribution Width 18.3 % (11.8-14.3); White Blood Cell 6.8 10^3/uL (4.4-10.8)
== END | disposition home or self-care (01) ==
LOC: LAB 16:07
PROVIDERS: ATTEND Internal Medicine
DX: D64.9 Anemia, unspecified (principal)
CPT/HCPCS: 36415; 85025